=== PATIENT | female | born 1960 | race Caucasian/White ===

== ENCOUNTER 2016-05-02 04:13 | Emergency (ER) | payer OTHER ==
[~2016-05-02] VITALS: Ht 142.2 cm; Wt 47.6 kg
[~2016-05-02 04:13] MED LIST: DIAZ10TA PO; FLUO10CA26 PO
[2016-05-02 04:28] VITALS: BP 153/98
== END 2016-05-02 05:12 | disposition home or self-care (01) ==
LOC: ER 04:15
DX: M25.562 Pain in left knee (principal); G89.29 Other chronic pain; Z87.891 Personal history of nicotine dependence; Z88.8 Allergy status to other drugs, medicaments and biological substances; Z88.5 Allergy status to narcotic agent
CPT/HCPCS: A4606; Z7502; Z7610